=== PATIENT | male | born 1960 | race Caucasian/White ===

== ENCOUNTER 2019-05-27 18:14 | Observation (INO) | payer OTHER ==
[2019-05-27] MEDS ORDERED: methylPREDNISolone Sodium Succinate 125 MG/2 ML SDV IVPUSH ONE (18:16)
[2019-05-27] MEDS ORDERED: diphenhydrAMINE 50 MG/ML SDV IVPUSH ONE (18:17)
[2019-05-27] MEDS ORDERED: EPINEPHrine 0.3 MG/0.3 ML Pen Autoinjector IM ONE (18:17)
[2019-05-27] MEDS: Sodium Chloride 0.9% 1,000 ML IV ONE ×2 (18:27→19:31)
[2019-05-27] MEDS ORDERED: predniSONE 20 MG Tab ONE (18:30)
[2019-05-27] MEDS ORDERED: Acetaminophen 325 MG Tab PO ONE (19:22)
[2019-05-27] MEDS ORDERED: Acetaminophen 325 MG Tab ONE (19:32)
[2019-05-27] MEDS ORDERED: Sodium Chloride 0.9% 1,000 ML IV ONE (19:33)
[2019-05-27] MEDS ORDERED: Famotidine 20 MG/2 ML SDV IVPUSH ONE (19:42)
[2019-05-27] MEDS ORDERED: Famotidine 20 MG Tab ONE (20:10)
[2019-05-27] MEDS ORDERED: Famotidine 20 MG Tab PO ONE (20:17)
[2019-05-27] MEDS ORDERED: Sodium Chloride 0.9% 1,000 ML IV SCH (21:00)
[2019-05-27] MEDS ORDERED: predniSONE 20 MG Tab PO ONE (22:00)
[2019-05-28] MEDS ORDERED: metFORMIN 500 MG Tab PO SCH (08:00)
[2019-05-28] MEDS ORDERED: predniSONE 20 MG Tab ONE (09:21)
--- NOTE | 2019-05-28 09:54 | ADMIT ---
This patient was admitted through the ER with an allergic reaction due to taking Augmentin and during the course of treatment, he became hypotensive and symptomatically, so the patient's breathing and rash resolved with the ER treatment, but even with bolusing in 1.5 L of normal saline. His blood pressure just was not coming up and he had a near syncopal episode when he tried to stand. The patient was admitted for observation. He will be kept on IV fluid overnight at a reduced rate of 100 mL an hour. The patient was given Pepcid shortly before coming to the hospital and he will be given prednisone 20 mg p.o. this evening after being admitted. We will monitor the patient overnight so far, his breathing is normal and the rash that he came in with this resolved. He just feels tired and weak. CRS/MODL /[id number]
--- NOTE | 2019-05-28 14:10 | DISCH ---
HOSPITAL COURSE: This 58-year-old male was admitted last night through the emergency room after having an allergic reaction to taking Augmentin and then he became symptomatically hypotensive. The patient has had a good night. He has rested quietly. His blood pressures have improved overnight. Vital signs this morning reveal a blood pressure of 122/89. Taken a 2nd time, it was similar, 126/83. O2 saturations have been in the mid 90s. The patient's pulse has been running in the low 90s. He states he feels much better. Upon entering the room, the patient is awake. He looks relaxed. I had the patient stand and walk around the exam room. He can do this without feeling any weakness or lightheadedness. PHYSICAL EXAMINATION: RESPIRATORY: Today, lungs are clear with good air exchange. CARDIAC: Heart sounds distinct without murmurs. SKIN: Warm and dry. There is no sign of rash. The patient will be discharged this morning. I do want him to take prednisone 20 mg this morning and another dose this evening. He is to take Benadryl or some form of antihistamine throughout the day. He is to take it easy for the next few hours, increasing activity as tolerated, and we had a discussion about being severely allergic to any of the penicillins. He also took Flonase. I do not feel this is the culprit, but I advised the patient to hold his Flonase as well until he has a chance to talk things over with his primary care provider. CRS/MODL /[id number]
--- NOTE | 2019-05-30 09:47 | ER ---
HISTORY OF PRESENT ILLNESS: The patient is a 58-year-old male who was found in the parking lot by a passerby. He was sitting on the ground leaning against his car. He told her that he was having an allergic reaction, and she came into the hospital and alerted our staff. I went out with nursing staff to evaluate the patient. He was responsive, and breathing was nonlabored. The patient states he feels a little short of breath, but he can breathe. He tells me that he took an antibiotic and Flonase about 4:30 this afternoon, and it was not long afterwards when he started to feel funny. He was driving to the hospital when he states that he was getting quite itchy and weak. The patient was unable to stand any longer and decided to sit on the ground. At this point, a wheelchair was brought out. We assisted the patient into the wheelchair, and he was brought to the emergency room. The patient tells us that he had open-heart surgery in March, 2 months ago, and he has been doing well. In fact, he was just seen this afternoon for sinus infection and given Augmentin and Flonase. OBJECTIVE: GENERAL APPEARANCE: The patient is tired in appearance, but he does respond to verbal stimuli. The patient is mildly diaphoretic. VITAL SIGNS: Initial vital signs reveal blood pressure 156/80, pulse is 98. He is afebrile. Respirations 20. HEENT: He has a superficial abrasion on his forehead about 2 cm in size. There is no active bleeding from this. SKIN: Examining the skin reveals a blotchy erythematous rash on his abdomen, hands, forearms, and lower legs. LUNGS: Clear. CARDIAC: Heart sounds distinct without murmurs. The patient denies any chest pain. Initial treatment, IVs were started. The patient was given epi initially, an EpiPen in the right thigh. This did help with the itching within about a minute. As soon as the IVs were started, the patient was given Solu-Medrol 125 mg followed with Benadryl 50 mg. We then started an IV bolusing in 1 L. The patient's blood pressure had dropped to 92/70 and it remained in this neighborhood for several readings that were taken 10 minutes apart. By the time we got to our second liter of fluids, the patient's blood pressure started to improve, he stated that the itching was gone, and the rash has largely disappeared at this time. The patient was tired and resting quietly at 8:45 p.m. I checked on the patient and his blood pressure improved to 114 just over 100 diastolic. The patient states he feels a little tired but better. He feels a little almost heartburn-type symptoms, but his headache is gone that he had earlier, after we gave him 650 mg of Tylenol. At this point, we had the patient sit up, and he seemed to tolerate this well. We then had him stand and within about 30 seconds he became very pale, lightheaded, and had a near syncopal episode. We helped the patient back to the cot. He was responsive, but had his eyes closed. He regained color within 30 seconds of lying flat. At this point, the decision was made to admit the patient for observation. DIAGNOSES: 1. Allergic reaction, most likely to Augmentin. 2. Hypotension, secondary to the allergic reaction. TREATMENT PLAN: The patient will be admitted for observation. We will turn his IV fluids down to 125 mL an hour, and he will be watched closely throughout the night. We also gave Pepcid 20 mg p.o., and I will follow the patient in the hospital. CRS/MODL /[id number]
== END 2019-05-28 09:53 | disposition home or self-care (01) ==
LOC: LB.ED 18:14 → LB.MS 20:50 → UNDOADMOB 20:50 → LB.MS 20:53
PROVIDERS: ADMIT Physician Assistant; ATTEND Physician Assistant
DX: I95.2 Hypotension due to drugs (principal); T36.0X5A Adverse effect of penicillins, initial encounter; T36.1X5A Adverse effect of cephalosporins and other beta-lactam antibiotics, initial encounter
CPT/HCPCS: 36415; 80053; 82962; 85025; 96361; 96372; 96374; 99285-25; A9270-GY; J1200; J2930; J7030

== ENCOUNTER 2022-08-03 19:45 | Emergency (ER) | payer BC ==
[2022-08-03] MEDS ORDERED: Acetaminophen/Codeine 300-30 MG Tab ONE (20:00)
[2022-08-03] MEDS ORDERED: Doxycycline 100 MG Cap ONE (20:00)
== END 2022-08-03 20:10 | disposition home or self-care (01) ==
LOC: LB.ED 19:45 → SUPCPDRO 19:45 → LB.ED 20:10
DX: L03.811 Cellulitis of head [any part, except face] (principal); I10 Essential (primary) hypertension; E11.9 Type 2 diabetes mellitus without complications; Z88.0 Allergy status to penicillin; Z91.018 Allergy to other foods
CPT/HCPCS: 99282; A9270-GY

== ENCOUNTER 2024-01-05 08:18 | Emergency (ER) | payer BC ==
[2024-01-05] MEDS: Ketorolac 30 MG/ML SDV IM ONE (08:47)
[2024-01-05] MEDS: Lidocaine 5% 700 MG Patch TOP ONE (08:55)
[2024-01-05] MEDS: Ketorolac 30 MG/ML SDV ONE ×2 (08:55)
== END 2024-01-05 09:01 | disposition home or self-care (01) ==
LOC: LB.ED 08:18
DX: M54.31 Sciatica, right side (principal); I10 Essential (primary) hypertension; E78.00 Pure hypercholesterolemia, unspecified; E11.9 Type 2 diabetes mellitus without complications; Z79.84 Long term (current) use of oral hypoglycemic drugs; Z79.899 Other long term (current) drug therapy; Z88.0 Allergy status to penicillin; Z88.1 Allergy status to other antibiotic agents; Z91.018 Allergy to other foods
CPT/HCPCS: 96372; 99283; A9270-GY; J1885

== ENCOUNTER 2024-05-19 01:06 | Emergency (ER) | payer BC ==
[2024-05-19] MEDS: Ketorolac 30 MG/ML SDV IM ONE (01:35)
[2024-05-19] MEDS: Ketorolac 30 MG/ML SDV ONE (01:38)
[2024-05-19] MEDS: Morphine 2 MG/ML SYRINGE IM ONE ×2 (02:28→04:44)
[2024-05-19] MEDS: Morphine 4 MG/ML VIAL ONE (02:29)
[2024-05-19] MEDS: Morphine 2 MG/ML SYRINGE ONE (04:47)
[2024-05-19] MEDS ORDERED: Cyclobenzaprine 10 MG Tab ONE (05:00)
[2024-05-19 05:40] VITALS: BP 162/103; PULSE 81
== END 2024-05-19 05:25 | disposition home or self-care (01) ==
LOC: LB.ED 01:06
DX: M54.50 Low back pain, unspecified (principal); G89.29 Other chronic pain; E78.00 Pure hypercholesterolemia, unspecified; I10 Essential (primary) hypertension; I25.2 Old myocardial infarction; E11.9 Type 2 diabetes mellitus without complications; Z88.0 Allergy status to penicillin; Z91.018 Allergy to other foods; Z79.82 Long term (current) use of aspirin; Z79.899 Other long term (current) drug therapy; Z79.4 Long term (current) use of insulin
CPT/HCPCS: 96372; 99283; 99284; A9270-GY; J1885; J2270

== ENCOUNTER 2024-05-22 07:05 | Emergency (ER) | payer BC ==
[2024-05-22] MEDS: Ketorolac 30 MG/ML SDV IM ONE (07:38)
== END 2024-05-22 09:11 | disposition home or self-care (01) ==
LOC: LB.ED 07:05
DX: M54.50 Low back pain, unspecified (principal); I10 Essential (primary) hypertension; E11.9 Type 2 diabetes mellitus without complications; Z79.4 Long term (current) use of insulin; Z79.899 Other long term (current) drug therapy; Z79.82 Long term (current) use of aspirin; Z88.0 Allergy status to penicillin; Z91.018 Allergy to other foods
CPT/HCPCS: 96372; 99282; J1885

== ENCOUNTER 2024-05-23 22:55 | Emergency (ER) | payer BC ==
[2024-05-23] MEDS: Ketorolac 15 MG/ML SDV IM ONE (23:19)
[2024-05-23] MEDS: Ketorolac 30 MG/ML SDV ONE (23:21)
[2024-05-23] MEDS: Morphine 2 MG/ML SYRINGE IM ONE (23:53)
[2024-05-23] MEDS: Morphine 4 MG/ML VIAL ONE (23:56)
[2024-05-24] MEDS: Morphine 4 MG/ML VIAL IVPUSH ONE (00:40)
[2024-05-24] MEDS: Morphine 2 MG/ML SYRINGE ONE (00:51)
== END 2024-05-24 03:20 | disposition home or self-care (01) ==
LOC: LB.ED 22:55
DX: M48.062 Spinal stenosis, lumbar region with neurogenic claudication (principal); G89.29 Other chronic pain; I10 Essential (primary) hypertension; E78.00 Pure hypercholesterolemia, unspecified; E11.9 Type 2 diabetes mellitus without complications; Z79.82 Long term (current) use of aspirin; Z79.899 Other long term (current) drug therapy; Z79.4 Long term (current) use of insulin; Z91.018 Allergy to other foods; Z88.0 Allergy status to penicillin
CPT/HCPCS: 96372; 96374; 99283; 99284; J1885; J2270

== ENCOUNTER 2025-03-29 19:46 | Emergency (ER) | payer BC ==
[2025-03-29 20:24] LABS: BASOPHILS ABSOLUTE AUTO 0.01 K/uL (0.02-0.10); BASOPHILS PERCENT AUTO 0.1 % (0.0-0.5); EOSINOPHILS ABSOLUTE AUTO 0.12 K/uL (0.04-0.40); EOSINOPHILS PERCENT AUTO 1.7 % (1.0-5.0); LYMPHOCYTES ABSOLUTE AUTO 2.40 K/uL (1.50-4.00); LYMPHOCYTES PERCENT AUTO 34.2 % (20.0-40.0); MEAN PLATELET VOLUME 10.6 fL (6.0-10.0); MONOCYTES ABSOLUTE AUTO 0.69 K/uL (0.20-0.80); MONOCYTES PERCENT AUTO 9.8 % (3.0-10.0); NEUTROPHILS ABSOLUTE AUTO 3.80 K/uL (2.00-7.50); NEUTROPHILS PERCENT AUTO 54.2 % (45.0-70.0); PLATELET COUNT,PLT 242 K/uL (150-400); RED BLOOD CELL COUNT 4.50 M/uL (4.50-6.50); RED CELL DISTRIBUTION WIDTH 13.0 % (11.0-16.0); WHITE BLOOD CELL COUNT,WBC 7.0 K/uL (4.0-11.0)
[2025-03-29 20:38] LABS: INR 1.0 (1.0-3.5)
[2025-03-29 20:43] LABS: A/G RATIO 0.9 (0.8-2.0); ALANINE AMINOTRANSFERASE,ALT 22.0 U/L (12-78); ASPARTATE AMNIOTRANSFERASE,AST 20.0 U/L (15-37); BILIRUBIN TOTAL 0.4 mg/dL (0.0-1.0); BLOOD UREA NITROGEN,BUN 36.0 mg/dL (8-26); CARBON DIOXIDE,CO2 25.9 mmol/L (21.0-32.0); CHLORIDE,CL 98.0 mmol/L (98-107); CREATININE 1.67 mg/dL (0.70-1.30); EST CRCL DRUG DOSING (CG) 46.34 mL/min; ESTIMATED GFR 45.0 mL/min (>60); GLUCOSE RANDOM 137.0 mg/dL (74-100); POTASSIUM,K 3.2 mmol/L (3.5-5.1); PROTEIN TOTAL,TP 7.9 g/dL (6.4-8.2); SODIUM,NA 133.0 mmol/L (136-145)
== END 2025-03-29 21:19 | disposition home or self-care (01) ==
LOC: LB.ED 19:46
DX: F10.120 Alcohol abuse with intoxication, uncomplicated (principal); E86.0 Dehydration; R51.9 Headache, unspecified; M54.2 Cervicalgia; I10 Essential (primary) hypertension; I25.2 Old myocardial infarction; E78.00 Pure hypercholesterolemia, unspecified; E11.9 Type 2 diabetes mellitus without complications; Z86.73 Personal history of transient ischemic attack (TIA), and cerebral infarction without residual deficits; Z79.82 Long term (current) use of aspirin; Z79.899 Other long term (current) drug therapy; Z88.0 Allergy status to penicillin; Z91.018 Allergy to other foods; Z79.84 Long term (current) use of oral hypoglycemic drugs; W19.XXXA Unspecified fall, initial encounter; Y92.511 Restaurant or cafe as the place of occurrence of the external cause; Y90.7 Blood alcohol level of 200-239 mg/100 ml
CPT/HCPCS: 36415; 70450; 72125; 80053; 80307; 85025; 85610; 96360; 99284; 99285-25; J7030